=== PATIENT | female | born 1955 | race African-American/Black ===

== ENCOUNTER 2021-07-14 01:06 | Day surgery (SDC) | payer OTHER, SELFPAY ==
--- NOTE | 2021-07-03 13:02 | PC.NURSE ---
Report to the Outpatient Waiting Room, entrance under the green pavilion located off [facility], at time _0600 on date _07/14/21 . OR Time: . - You and your visitor will be asked a series of questions to screen for COVID 19 for your protection. - A mask is required within the hospital. - Only one visitor is allowed at this time. Patient visitors will be guided where to wait when not with patient. Preoperative COVID Testing Requirements: No COVID Test needed if: (proof is required; if not received patient will have Rapid Test prior to entry) - Patient has received COVID Vaccine at least 14 days prior to procedure date or - Patient has positive COVID test result within last 90 days of surgery date. COVID Test needed if above criteria is not met If not COVID vaccinated a COVID test must be conducted within 72 hours of surgery and patient is asked to isolate self from time of testing until procedure. You will go to the [facility] for your COVID testing. The [facility] site is located at the corner of [address] [facility]. You will only be called if COVID results are positive and your surgeon may reschedule your elective surgery date. Patients may have clear liquids (water, carbonated beverages, clear teas, apple juice) until 3 hours prior to surgery with a maximum of 20 ounces. - No food from midnight until time of surgery - Infants may have breast milk until 4 hours before surgery, formula 6 hours prior to surgery. - Children will be allowed to drink immediately following surgery. If applicable, please bring a bottle or sippy cup to assist with drinking. Juice, water, soda, and popsicles are readily available. For infants on formula, please bring formula the day of surgery. Pacifiers are allowed. Take the following medications with a SIP of water the morning of surgery: _HYDRALAZINE,LABETALOL Medications to discontinue per physician ___ALL VITAMINS AND SUPPLEMENTS 3 DAYS PRE OP Date to take last dose___07/10/21 Please no make-up, nail danish, hairspray, perfume, deodorant, or body powder the day of surgery. No jewelry (including any body piercings) or valuables the day of surgery, leave them at home. Please take a shower or bath the night before, or the morning of, surgery with an antibacterial soap. Wear comfortable, loose fitting clothing. Children are encouraged to wear pajamas. - Jewelry must be removed prior to entering the operating room. Rings and piercings that are not removed may be cut off. - The hospital will not accept responsibility for valuables. - Please leave all valuables, including medications, at home the day of surgery. If you are going home after surgery, a licensed rolloff driver must drive you home. - NO public transportation without another adult. - We recommend that an adult stay with you for 24 hours following discharge. - We also recommend that you do not drive, make important decision, drink alcoholic beverages, or take any drugs that were not prescribed by your health care provider for at least 24 hours after your discharge time. For Pediatric surgeries, we recommend two adults accompany the child home (only one inside the building at this time). Follow any additional instructions given to you from your surgeon. Telephone instructions given to __PATIENT and asked if any additional questions and then verbalized understanding. Patient advised to call surgeon office or pre surgery nurse liaison [phone] if any additional questions.
[2021-07-03 13:08] VITALS: BMI 30.7
--- NOTE | 2021-07-13 13:08 | WPDANESEPPF ---
Anes - Initial Pre Proc Eval Procedure: Operation Date: 07/14/21 07:30 Proposed Procedures p Face Lift - Dagoberto Salazar MD s Neck Lift - Dagoberto Salazar MD Date/Time: 07/13/21 13:08 Surgeon: Dagoberto Salazar MD Pre Op Diagnosis: skin laxity Patient Data Age: 66 Gender: F Height: 1.68 m Weight: 86.2 kg Allergies Allergy/AdvReac Type Severity Reaction Status Date / Time metformin AdvReac Nausea Verified 07/03/21 12:36 NSAIDS (Non-Steroidal AdvReac GASTRIC Verified 07/03/21 12:37 Anti-Inflamma BYPASS SURGERY Home Medications Medication Instructions Recorded Confirmed Type cholecalciferol (vitamin D3) 50 50 mcg PO DAILY 05/22/21 07/03/21 History mcg (2,000 unit) capsule clotrimazole-betamethasone 1 1 applic TOPICAL PRN PRN 05/22/21 07/03/21 History %-0.05 % topical cream dulaglutide 3 mg/0.5 mL 3 mg SUBCUT WEEKLY 05/22/21 07/03/21 History subcutaneous pen injector eflornithine 13.9 % topical cream 1 applic TOPICAL DAILY 05/22/21 07/03/21 History famotidine 20 mg tablet 20 mg PO DAILY 05/22/21 07/03/21 History felodipine 5 mg tablet,extended 5 mg PO DAILY 05/22/21 07/03/21 History release 24 hr furosemide 40 mg tablet 40 mg PO QAM 05/22/21 07/03/21 History hydralazine 100 mg tablet 100 mg PO QAM 05/22/21 07/03/21 History labetalol 300 mg tablet 300 mg PO QAM 05/22/21 07/03/21 History lisinopril 5 mg tablet 5 mg PO DAILY 05/22/21 07/03/21 History polysaccharide iron complex 150 mg 150 mg PO DAILY 05/22/21 07/03/21 History iron capsule pravastatin 40 mg tablet 40 mg PO DAILY 05/22/21 07/03/21 History vitamin B12 2,500 mcg-folic acid 1 tablet PO DAILY 05/22/21 07/03/21 History 400 mcg disintegrating tablet docusate sodium [Colace] 100 mg PO PRN PRN 07/03/21 07/03/21 History ondansetron HCl 4 mg tablet 4 mg PO Q8H #21 tablet 07/03/21 07/03/21 Rx oxycodone-acetaminophen 5 mg-325 1 tablet PO Q6H PRN #30 tablet 07/03/21 07/03/21 Rx mg tablet Patient hx anesthesia problems: none Family hx anesthesia problems: none Results Review: All pre-operative results and documents have been reviewed as part of the pre-operative evaluation. [facility] Past Medical History Medical History (Updated 07/13/21 @ 13:08 by Drew Sánchez MD) Aortic valve regurgitation Hypertension Mixed hyperlipidemia Peripheral vascular disease Social History Social History Smoking packs per day: 0.5 Smoking cigarettes per day: 10.0 Years smoked: 23 Smoking pack-years: 11.50 Smoking status: Former smoker Tobacco type: cigarettes Smoking end date: 08/12/93 Alcohol intake: current Drinks per week: 7 Living arrangements: with family Spiritual care concerns: No Anes - Eval Final PreProcedure Day of Procedure 07/13/21 13:08 Patient weight: obese Heart: regular rate and rhythm Lungs: clear to auscultation Airway: Mallampati scale class II Neurological: alert and oriented Last oral intake: >/= 8 hours ASA classification: III Emergent: no Anesthetic plan: proceed Anesthesia type and monitoring: general ETT and standard monitoring Results Review: All pre-operative results and documents have been reviewed as part of the pre-operative evaluation. Informed Consent: The patient's anesthetic plan and its attendant risks and benefits were discussed with the patient/family/POA. Questions were solicited and answers provided to the satisfaction of the patient/family/POA.
[2021-07-14] VITALS (17 sets, daily range): BP systolic 109–139; BP diastolic 58–88; PULSE 71–118; RESP 16–24; TEMP 36.4–37.1; O2SAT 93–100
--- NOTE | 2021-07-14 05:53 | ECG_ITS ---
Measurements Intervals [place] Rate: 65 P: 60 TX: 161 QRS: -20 QRSD: 110 T: 29 QT: 413 QTc: 430 Interpretive Statements SINUS RHYTHM NORMAL ECG Electronically Signed On 07-14-2021 7:47:54 [employer] by Abraham Lofton D.O.
[2021-07-14] MEDS: LACTATED RINGERS 1,000 ML 30 ML IV CONT ×3 (06:45→12:02)
[2021-07-14] MEDS: TRANEXAMIC ACID 1,000MG/ISO100 1,000 MG/100 ML BAG 200 MG IVPB (07:00)
[2021-07-14 07:01] LABS: Urine Cotinine NEGATIVE
--- NOTE | 2021-07-14 07:01 | WPDHPUPDATE1 ---
History and Physical Update Update Date/Time: 07/14/21 07:01 History and Physical has been reviewed, including an updated exam of the patient. There are NO changes in the patient's condition. Risks, benefits, and alternatives have been discussed and questions answered. Patient agrees to proceed with procedure.
[2021-07-14 07:02] LABS: Glucose Point of Care 77 mg/dl (65-105)
--- NOTE | 2021-07-14 07:26 | P.OP_ITS ---
Procedure Note - Detailed Date of Procedure 07/14/21 Pre-op Diagnosis skin laxity Post-op Diagnosis same Procedure Performed Face / Neck lift Surgeon Dagoberto Salazar MD Anesthesia general Description of Procedure Preoperatively the risks, benefits, alternatives were discussed in extensive detail. I want her to be very realistic about the risks involved as well as expectations. Reviewed what we can and cannot accomplish. Realistic expectations of outcome. All questions were answered to satisfaction. Consent obtained. Using a tumescent solution with Tx a I completed infiltration of the face and neck. Taken to the operating room placed supine on the operating room table. Anesthesia provided by anesthesiology. Prepped and draped in standard sterile fashion. Surgical time-out was taken. Local anesthesia was provided with a tumescent solution using lidocaine, epinephrine, and TXA. Once adequate time for effect a fifteen blade used to make a submental incision. Dissection was continued down identified platysma muscle. Elevated skin flaps with good adiposity of the deep surface throughout the neck. Excess preplatysmal fat was removed. I then went sub platysmal and deep fat of the small portion. Care was taken to make sure there was a good smooth contour under the submental area. There really was minimal protrusion of the submandibular glands noted. I plicated the digastric muscle with 2-0 Vicryl. I then slightly trimmed the platysma muscle and imbricated as with vertical mattress sutures using 2-0 Vicryl in multiple layers. Also completed inferior platysmal release with no evidence of neurovascular or other structure injury. I then proceeded made the remainder of the incisions. I elevated skin flaps with good adequate adiposity of the deep surface to have good contour. This was continued for all the areas necessary for mobilization. Next Platysma plication was completed in multiple layers using 2-0 Vicryl bilateral. This is an oblique fashion from the angle towards the malar prominence. Copious irrigated with saline solution and verified strict hemostasis. I placed 10 Rowdy drains the right 1 went subcutaneous left 1 a broad around under the platysma muscle. These drains were sutured in place postauricular with this 3-0 Vicryl. The skin flaps were just placed into position without any tension. Trimmed as necessary. Preauricular was closed with 5 0 nylon. Postauricular with 4-0 subcuticular moncryl I did oscar in the hairline. Submental was closed using 3-0 Monocryl followed by running subcuticular 4-0 Monocryl and tissue glue. Dressings were placed. Patient was awoken without difficulty. All instrument sponge counts were correc t at the end of the case. Estimated Blood Loss 30 Drains Yes Packing No Pathology none sent Complications No immediate complications Condition stable Disposition PACU
[2021-07-14] MEDS: ceFAZolin 2 GM/D5W 50 ML 2 GM/50 ML BAG IVPB (07:27)
[2021-07-14 12:22] LABS: Glucose Point of Care 128 mg/dl (65-105)
--- NOTE | 2021-07-14 12:25 | SUR.PHASEI ---
1225 family member updated byphone.
--- NOTE | 2021-07-14 13:14 | SUR.PHASEI ---
1314- pt delay in pacu 30 minutes due to no bed ready on ob unit.
[2021-07-14] MEDS: LACTATED RINGERS 1,000 ML 125 ML IV CONT (16:19)
[2021-07-14] MEDS: oxyCODONE/ACETAMINOPHEN (*CRX) 5-325 MG TABLET PO ×2 (16:22→22:11)
[2021-07-14] MEDS: carisoprodoL (*CRX) 350 MG TABLET PO ×2 (17:52→23:53)
--- NOTE | 2021-07-14 19:12 | PC.NURSE ---
1537-This patient, Davida Garzon, was admitted to OB 2nd Floor Room 288-00. Patient oriented to hospital policies and general routines including ID bracelet, bed and alarms, visiting hours, pain management, procedures, bathroom and other care routines, personal items, smoking policy, room service/diet, and visiting hours. Information on how to activate the Rapid Response Team has been discussed. Patient is encouraged to report perceived risks to care and to ask questions if they do not understand what they are told or what they should do.
[2021-07-14] MEDS: DOCUSATE SODIUM 100 MG CAPSULE PO (22:10)
[2021-07-15] MEDS: oxyCODONE/ACETAMINOPHEN (*CRX) 5-325 MG TABLET PO ×2 (03:14→09:50)
[2021-07-15 03:18] VITALS: BP 128/75; PULSE 77; RESP 16; TEMP 36.6; O2SAT 95
[2021-07-15] MEDS: carisoprodoL (*CRX) 350 MG TABLET PO (05:56)
--- NOTE | 2021-07-15 07:45 | WPDPN ---
Progress Note: A&P Assessment and Plan (1) Encounter for cosmetic surgery: Code(s): Z41.1 - Encounter for cosmetic surgery Status: Acute Assessment and Plan: She is doing very well after face and neck lift. Will discharge home. Follow up next week. Today we had a lengthy discussion about the care. What monitor for. Activity limitations. This was a lengthy open-ended conversation making sure she was well informed. She understands she can call at any point with any questions or concerns. She understands what is a medical emergency and went to proceed to the ER/dial 911. We will see her back. (2) History of weight loss surgery: Code(s): Z98.84 - Bariatric surgery status Status: Acute Time Spent With Patient Time with patient: 25 - 35 minutes Subjective Date/time seen: 07/15/21 07:45 She is doing very well after face and neck lift. She states her pain is controlled. She is able to ambulate. No nausea vomiting. No fevers or chills. No shortness of breath. No chest pain. No calf tenderness. Tolerating diet. Exam Narrative: Alert and oriented no obvious distress Respiratory on labored Abdomen soft Face and neck are healing well. No signs of infection. No hematoma. No seroma. Cranial nerves 2-12 grossly intact. Drains are becoming serosanguineous. No calf tenderness. Negative Homans. Objective Data Vital Signs Vital Signs: Vital Signs - 24 hr 07/14/21 11:39 07/14/21 11:55 07/14/21 12:08 Temperature 36.4 C L Pulse Rate 118 H 105 H 95 Respiratory Rate 24 H 20 19 Blood Pressure 121/64 129/67 115/58 L Pulse Oximetry 93 98 99 07/14/21 12:24 07/14/21 12:40 07/14/21 12:54 Temperature Pulse Rate 94 91 95 Respiratory Rate 18 18 18 Blood Pressure 125/72 120/78 124/66 Pulse Oximetry 99 99 99 07/14/21 13:08 07/14/21 13:16 07/14/21 13:31 Temperature Pulse Rate 96 98 98 Respiratory Rate 18 18 18 Blood Pressure 109/71 121/71 116/68 Pulse Oximetry 94 07/14/21 14:00 07/14/21 14:30 07/14/21 15:00 Temperature Pulse Rate 97 86 88 Respiratory Rate 16 Blood Pressure 123/81 134/67 135/81 Pulse Oximetry 07/14/21 15:30 07/14/21 15:45 Temperature 37.1 C Pulse Rate 100 98 Respiratory Rate 18 Blood Pressure 139/76 131/88 Pulse Oximetry 95 Intake/Output Intake/Output: Intake & Output 07/12/21 07/13/21 07/14/21 07/15/21 23:59 23:59 23:59 23:59 Intake Total 3023 Output Total 2 300 Balance 3021 -300 Meds/Results Medications: Active Medications Generic Name Dose Route Start Last Admin Trade Name Freq PRN Reason Stop Dose Admin Carisoprodol 350 mg 07/14/21 18:00 07/15/21 05:56 Carisoprodol (*Crx) 350 Mg Tablet PO 350 mg Q6HR MEÑO Administration Clotrimazole 1 applic 07/14/21 15:37 Betamethasone/Clotrimazole Cr 15 Gm Tube TOPICAL PRN PRN Inflammation Cyanocobalamin 2,500 mcg 07/15/21 09:00 Cyanocobalamin 500 Mcg Tablet PO 08/14/21 08:59 DAILY MEÑO Diazepam 5 mg 07/14/21 11:36 Diazepam (*Crx) 5 Mg Tablet PO TID PRN Anxiety Docusate Sodium 100 mg 07/14/21 21:00 07/14/21 22:10 Docusate Sodium 100 Mg Capsule PO 100 mg Q12HR MEÑO Administration Felodipine 5 mg 07/15/21 09:00 Felodipine 5 Mg Tab Cr PO DAILY MEÑO Folic Acid 0.4 mg 07/15/21 09:00 Folic Acid 0.4 Mg Tablet PO 08/14/21 08:59 DAILY MEÑO Furosemide 40 mg 07/15/21 09:00 Furosemide 40 Mg Tablet PO QAM MEÑO Hydralazine HCl 100 mg 07/15/21 09:00 Hydralazine Hcl 50 Mg Tablet PO QAM [facility] Lactated Ringer's 1,000 mls @ 125 mls/hr 07/14/21 11:40 07/14/21 23:55 Lr - Lactated Ringers Iv IV CONT Infused .Q8H MEÑO Infusion Labetalol HCl 300 mg 07/15/21 09:00 Labetalol Hcl 100 Mg Tablet PO QAM MEÑO Lisinopril 5 mg 07/15/21 09:00 Lisinopril 5 Mg Tablet PO DAILY MEÑO Miscellaneous Information 0 each 07/14/21 00:01 Trulicity Is Non
--- NOTE | 2021-07-15 07:47 | PM.DS ---
DS: Admitting Diagnosis Discharge Date 07/15/2021 Admitting Diagnosis Encounter cosmetic surgery DS: Discharge Diagnosis Discharge Diagnosis (1) Encounter for cosmetic surgery: Code(s): Z41.1 - Encounter for cosmetic surgery Status: Acute DS: Summary Hospital Course Hospital Course: She underwent face and neck lift. Postoperatively she has done very well. Tolerating diet. Pain controlled. Ambulating. Will plan for discharge home. Time Spent with Patient Time attestation: Total time spent providing and/or coordinating discharge services: Exam Narrative: Alert and oriented no obvious distress Respiratory on labored Abdomen soft Face and neck are healing well. No signs of infection. No hematoma. No seroma. Cranial nerves 2-12 grossly intact. Drains are becoming serosanguineous. No calf tenderness. Negative Homans. DS: Data Data Completed and Pending Labs on day of discharge: Labs from last 24 hours 07/14/21 11:55 POC Capillary Glucose 128 H Discharge Plan Discharge Patient Disposition: Home, Self-Care Discharge Instructions: POST OPERATIVE DISCHARGE INSTRUCTIONS DAGOBERTO SALAZAR M.D. [facility] [place] [address] [address] for 24 hours after anesthesia and while you are taking pain medication. Take all prescribed medication as directed Diet as tolerated. No lifting or activity that raises blood pressure for 48 hours. Regular walking / ambulation. No showering until directed to. Once you shower do not take pain medication before showering as the combination of medication and heat may cause you to feel dizzy or pass out. No pools or tubs for 2 weeks. Call with any questions or concerns. Dressing Care: May wash face. Keep drain sites clean. Continue wrap 23 hours per day until follow-up. If you have any questions or concerns, please call the office . If it is after hours you will be directed to the correctional lieutenant exchange. Shortness of breath, chest pain, or other medical emergency dial 911 / proceed to the Emergency Room. Patient Instructions: [facility] Drain Care (GEN) Stand Alone Forms: General Discharge Instructions Follow-up/Referrals: Dagoberto Salazar MD [Physician] - 1 Week Discharge Medications: Continued clotrimazole-betamethasone 1-0.05 % cream 1 applic topical PRN PRN (Reason: Inflammation) RF: 0 famotidine 20 mg tablet 20 mg PO DAILY RF: 0 felodipine 5 mg tablet extended release 24 hr 5 mg PO DAILY RF: 0 polysaccharide iron complex [Ferrex 150] 150 mg iron capsule 150 mg PO DAILY RF: 0 furosemide 40 mg tablet 40 mg PO QAM RF: 0 hydralazine 100 mg tablet 100 mg PO QAM RF: 0 labetalol 300 mg tablet 300 mg PO QAM RF: 0 lisinopril 5 mg tablet 5 mg PO DAILY RF: 0 pravastatin 40 mg tablet 40 mg PO DAILY RF: 0 Trulicity 3 mg/0.5 mL pen injector 3 mg subcut WEEKLY RF: 0 Vaniqa 13.9 % cream 1 applic topical DAILY RF: 0 vitamin [id number]-hehjb acid 2,500-400 mcg tablet,disintegrating 1 tablet PO DAILY RF: 0 cholecalciferol (vitamin D3) 50 mcg (2,000 unit) capsule 50 mcg PO DAILY RF: 0 ondansetron HCl [Zofran] 4 mg tablet 4 mg PO Q8H Qty: 21 RF: 0 oxycodone-acetaminophen [Percocet] 5-325 mg tablet 1 tablet PO Q6H PRN (Reason: pain) Qty: 30 RF: 0 docusate sodium [Colace] 100 mg capsule 100 mg PO PRN PRN (Reason: Constipation) RF: 0
[2021-07-15 08:11] VITALS: BP 127/82; PULSE 79; RESP 16; TEMP 36.6; O2SAT 97
[2021-07-15] MEDS: DOCUSATE SODIUM 100 MG CAPSULE PO (09:50)
[2021-07-15] MEDS: POLYSACCHARIDE IRON COMPLEX 150 MG CAPSULE PO (09:50)
--- NOTE | 2021-07-15 14:26 | WPDANESPN ---
Anes - Prog Note Post-Op Date/Time: 07/15/21 14:26 Cardiovascular status: normal Respiratory status: normal Airway patency: baseline Mental status: baseline Post-Op hydration status: normal Vital Signs: Last Vital Signs Temp 36.6 C 07/15/21 08:11 Pulse 79 07/15/21 08:11 Resp 16 07/15/21 08:11 BP 127/82 07/15/21 08:11 Pulse Ox 97 07/15/21 08:11 Pain Score (VAS): 0 I/O: Intake & Output 07/14/21 07/15/21 07/15/21 23:59 07:59 15:59 Intake Total 1873 300 Output Total 300 312 200 Balance 1573 -12 -200 Post-procedural complaints: none Patient Feedback: Patient satisfied with anesthetic care.
== END 2021-07-15 12:55 | disposition home or self-care (01) ==
LOC: ANHSURGERY 06:09 → ANHOB2 15:31
PROVIDERS: PCP Internal Medicine; Visit Provider Surgery Plastic and Reconstructive Surgery
PROC: (CPT 15824; principal; 2021-07-14 07:30)
PROC: (CPT 15819; 2021-07-14 07:30)
DX: Z41.1 Encounter for cosmetic surgery (principal); L57.4 Cutis laxa senilis; Z87.891 Personal history of nicotine dependence; Z98.84 Bariatric surgery status; I35.1 Nonrheumatic aortic (valve) insufficiency; I10 Essential (primary) hypertension; E11.9 Type 2 diabetes mellitus without complications; H05.119 Granuloma of unspecified orbit; H26.9 Unspecified cataract; D64.9 Anemia, unspecified; E78.2 Mixed hyperlipidemia; I73.9 Peripheral vascular disease, unspecified; E66.9 Obesity, unspecified; Z68.30 Body mass index [BMI] 30.0-30.9, adult
CPT/HCPCS: 15825; 80307; 82948; 93005; 99199; A9270; J0171; J0330; J0690; J1100; J1170; J2250; J2405; J2704; J3010; J7030; J7120